=== PATIENT | male | born 1970 | race Caucasian/White ===

== ENCOUNTER 2022-06-02 20:57 | Emergency (ER) | payer SELFPAY ==
[~2022-06-02] VITALS: Ht 182.9 cm; Wt 99.1 kg
[2022-06-02 21:59] LABS: BASOPHILS % (AUTO) 0.8 % (0.0-2.0); EOSINOPHILS % (AUTO) 0.5 % (1.0-6.0); HEMATOCRIT 33.8 % (41-53); HEMOGLOBIN 10.9 g/dL (13.5-17.5); LYMPHOCYTES % (AUTO) 33.2 % (22.0-44.0); MEAN CORPUSCULAR HEMOGLOBIN 30.9 pg (26.0-34.0); MEAN CORPUSCULAR HGB CONC 32.4 G/dL (31.0-37.0); MEAN CORPUSCULAR VOLUME 96 fL (80-100); MONOCYTES # (AUTO) 1.1 K/uL (0.1-1.0); MONOCYTES % (AUTO) 12.1 % (2.0-9.0); NEUTROPHILS # (AUTO) 4.8 K/uL (1.8-7.7); NEUTROPHILS % (AUTO) 53.4 % (40.0-70.0); PLATELET COUNT (AUTO) 239 K/uL (150-450); RED BLOOD CELL COUNT(AUTO) 3.54 MIL/uL (4.50-5.90); RED CELL DISTRIBUTION WIDTH 17.2 % (11.5-14.5)
[2022-06-02] MEDS ORDERED: LOSA1TAB37 PO (22:13)
[2022-06-02] MEDS ORDERED: OXYC1TAB6 PO (22:13)
[2022-06-02] MEDS ORDERED: DILT-72 PO (22:13)
[2022-06-02] MEDS ORDERED: APIX5TAB PO (22:13)
[2022-06-02 22:15] LABS: ALANINE AMINOTRANSFERASE 49 U/L (12-78); ALBUMIN 2.8 g/dL (3.4-5.0); ALKALINE PHOSPHATASE 257 U/L (46-116); ANION GAP 13 mmol/L (8-16); ASPARTATE AMINOTRANSFERASE 59 U/L (15-37); BILIRUBIN,TOTAL 0.6 mg/dL (0.1-1.0); CALCIUM, TOTAL 8.9 mg/dL (8.8-10.5); CARBON DIOXIDE 23 mmol/L (22-29); CHLORIDE 107 mmol/L (98-107); GLOMERULAR FILTR. RATE CALC > 60 mL/min (>60); GLUCOSE,RANDOM 73 mg/dL (70-110); SODIUM SERUM 143 mmol/L (136-145); TOTAL PROTEIN, SERUM 6.9 g/dL (6.4-8.2); UREA NITROGEN, BLOOD 8 mg/dL (7-18)
[2022-06-02 22:21] LABS: AMPHET/METH SCREEN,URINE NEGATIVE (NEGATIVE); BARBITURATE SCREEN, URINE NEGATIVE (NEGATIVE); BENZODIAZEPINES SCREEN,URINE NEGATIVE (NEGATIVE); CANNABINOID SCREEN,URINE NEGATIVE (NEGATIVE); COCAINE SCREEN,URINE NEGATIVE (NEGATIVE); METHADONE SCREEN, URINE NEGATIVE (NEGATIVE); OPIATE SCREEN,URINE NEGATIVE (NEGATIVE); PHENCYCLIDINE SCREEN,URINE NEGATIVE (NEGATIVE)
[2022-06-02 22:28] LABS: B-TYPE NATRIURETIC PEPTIDE 862 pg/mL (0-100)
[2022-06-02 23:22] VITALS: BP 149/80
[2022-06-02] MEDS ORDERED: FUROSEMIDE 20 MG TABLET PO ONE (23:30)
[2022-06-02] MEDS ORDERED: DILTIAZEM HCL CD 240 MG ER CAPSULE PO ONE (23:30)
[2022-06-02] MEDS ORDERED: APIXABAN 5 MG TABLET PO ONE (23:30)
[2022-06-02] MEDS ORDERED: ACETAMINOPHEN 325 MG TABLET PO ONE (23:30)
[2022-06-02] MEDS ORDERED: KETOROLAC TROMETHAMINE 10 MG TABLET PO ONE (23:30)
[2022-06-02] MEDS ORDERED: POTASSIUM CHLORIDE 20 MEQ ER TABLET PO ONE (23:30)
== END 2022-06-03 00:05 | disposition home or self-care (01) ==
LOC: EMS 21:00
DX: I48.91 Unspecified atrial fibrillation (principal); M79.604 Pain in right leg; M79.605 Pain in left leg; F10.10 Alcohol abuse, uncomplicated; I50.9 Heart failure, unspecified; Y90.9 Presence of alcohol in blood, level not specified; Z88.0 Allergy status to penicillin; Z79.899 Other long term (current) drug therapy
CPT/HCPCS: 71045; 80053; 83880; 84484; 85025; 93005; 99285; 36415-L1; 36415-TC

== ENCOUNTER 2022-06-03 03:46 | Emergency (ER) | payer SELFPAY ==
[~2022-06-03] VITALS: Ht 177.8 cm; Wt 97.7 kg
[~2022-06-03 03:46] MED LIST: APIX5TAB PO; DILT-72 PO; LOSA1TAB37 PO; OXYC1TAB6 PO
[2022-06-03 05:45] VITALS: BP 132/78
== END 2022-06-03 07:11 | disposition left against medical advice (07) ==
LOC: EMS 03:52
DX: M79.604 Pain in right leg (principal); M79.605 Pain in left leg; Z53.21 Procedure and treatment not carried out due to patient leaving prior to being seen by health care provider

== ENCOUNTER 2022-07-28 22:00 | Emergency (ER) | payer MEDICAID ==
[~2022-07-28] VITALS: Ht 182.9 cm; Wt 97.7 kg
[2022-07-28 22:47] LABS: COVID AG,FIA SOURCE NASAL SWAB
[2022-07-28] MEDS: ASPIRIN 81 MG CHEWABLE TABLET PO ONE ×2 (22:50→23:06)
[2022-07-28] MEDS ORDERED: ONDANSETRON HCL 4 MG/2 ML VIAL IVP ONE (23:15)
[2022-07-28] MEDS ORDERED: MORPHINE SULFATE 4 MG/ML SYRINGE IVP ONE (23:15)
[2022-07-29] MEDS ORDERED: DILTIAZEM HCL 5 MG/ML 5 ML VIAL IVP ONE
[2022-07-29] MEDS ORDERED: LEVOFLOXACIN 750 MG/D5% WATER 150 ML IV ONE
[2022-07-29 00:08] LABS: BASOPHILS % (AUTO) 1.5 % (0.0-2.0); EOSINOPHILS % (AUTO) 1.3 % (1.0-6.0); HEMATOCRIT 33.9 % (41-53); HEMOGLOBIN 10.6 g/dL (13.5-17.5); LYMPHOCYTES % (AUTO) 31.3 % (22.0-44.0); MEAN CORPUSCULAR HGB CONC 31.3 G/dL (31.0-37.0); MEAN CORPUSCULAR VOLUME 93 fL (80-100); MONOCYTES # (AUTO) 0.7 K/uL (0.1-1.0); MONOCYTES % (AUTO) 7.1 % (2.0-9.0); NEUTROPHILS # (AUTO) 5.6 K/uL (1.8-7.7); NEUTROPHILS % (AUTO) 58.8 % (40.0-70.0); PLATELET COUNT (AUTO) 317 K/uL (150-450); RED BLOOD CELL COUNT(AUTO) 3.66 MIL/uL (4.50-5.90); RED CELL DISTRIBUTION WIDTH 18.6 % (11.5-14.5)
[2022-07-29 00:14] LABS: ANION GAP 10 mmol/L (8-16); CALCIUM, TOTAL 8.9 mg/dL (8.8-10.5); CARBON DIOXIDE 28 mmol/L (22-29); CHLORIDE 105 mmol/L (98-107); CREATININE 0.76 mg/dL (0.60-1.30); GLUCOSE,RANDOM 88 mg/dL (70-110); POTASSIUM 3.6 mmol/L (3.5-5.1); SODIUM SERUM 143 mmol/L (136-145); UREA NITROGEN, BLOOD 10 mg/dL (7-18)
[2022-07-29 00:17] LABS: GLOMERULAR FILTR. RATE CALC > 60 mL/min (>60)
[2022-07-29 00:23] LABS: INR 1.1 (0.9-1.1); PROTHROMBIN TIME 11.9 SEC (9.4-11.6)
[2022-07-29 00:27] LABS: ALANINE AMINOTRANSFERASE 24 U/L (12-78); ALBUMIN 3.5 g/dL (3.4-5.0); ALKALINE PHOSPHATASE 192 U/L (46-116); ASPARTATE AMINOTRANSFERASE 38 U/L (15-37); BILIRUBIN,TOTAL 0.6 mg/dL (0.1-1.0); CREATINE KINASE, TOTAL ONLY 113 U/L (39-308)
[2022-07-29] MEDS ORDERED: DILTIAZEM HCL 125 MG in DEXTROSE 5%-WATER 100 ML IV PRN (00:30)
[2022-07-29 00:31] LABS: B-TYPE NATRIURETIC PEPTIDE 364 pg/mL (0-100)
[2022-07-29] MEDS ORDERED: FUROSEMIDE 40 MG/4 ML VIAL IVP ONE (00:45)
[2022-07-29 01:05] LABS: APPEARANCE,URINE CLEAR (CLEAR); BILIRUBIN,URINE NEGATIVE (NEGATIVE); GLUCOSE, URINE (UA) NEGATIVE (NEGATIVE); KETONES,URINE NEGATIVE (NEGATIVE); LEUKOCYTE ESTERASE ,URINE NEGATIVE (NEGATIVE); NITRATE,URINE NEGATIVE (NEGATIVE); OCCULT BLOOD,URINE NEGATIVE (NEGATIVE); PH,URINE 5.5 (5.0-8.0); PROTEIN,URINE 100-200,SEE CONFIRM mg/dL (NEGATIVE); SPECIFIC GRAVITIY, URINE 1.027 (1.003-1.030)
[2022-07-29 01:18] LABS: SULFOSALICYLIC ACID,URINE 1+ (Negative)
[2022-07-29 01:19] LABS: BACTERIA,URINE None Seen /HPF (None Seen); RBC,URINE None Seen /HPF (0-2); WBC,URINE None Seen /HPF (0-5)
[2022-07-29 03:02] LABS: AMPHET/METH SCREEN,URINE POSITIVE (NEGATIVE); BARBITURATE SCREEN, URINE NEGATIVE (NEGATIVE); BENZODIAZEPINES SCREEN,URINE POSITIVE (NEGATIVE); CANNABINOID SCREEN,URINE NEGATIVE (NEGATIVE); COCAINE SCREEN,URINE NEGATIVE (NEGATIVE); METHADONE SCREEN, URINE NEGATIVE (NEGATIVE); OPIATE SCREEN,URINE POSITIVE (NEGATIVE)
[2022-07-29] MEDS ORDERED: ACETAMINOPHEN 325 MG TABLET PO PRN (03:15)
[2022-07-29] MEDS ORDERED: 0.9% SODIUM CHLORIDE 10 ML SYRINGE IVP PRN (03:15)
[2022-07-29] MEDS ORDERED: ONDANSETRON HCL 4 MG/2 ML VIAL IVP PRN (03:15)
[2022-07-29 03:45] LABS: PHENCYCLIDINE SCREEN,URINE NEGATIVE (NEGATIVE)
[2022-07-29 04:46] VITALS: BP 122/78
== END 2022-07-29 04:46 | disposition left against medical advice (07) ==
LOC: EMS 22:01
DX: R07.9 Chest pain, unspecified (principal); I48.20 Chronic atrial fibrillation, unspecified; I50.9 Heart failure, unspecified; N50.89 Other specified disorders of the male genital organs; F10.10 Alcohol abuse, uncomplicated; J18.9 Pneumonia, unspecified organism; Z20.822 Contact with and (suspected) exposure to COVID-19; Z87.39 Personal history of other diseases of the musculoskeletal system and connective tissue; Z88.0 Allergy status to penicillin
CPT/HCPCS: 99285; 71045; 96375 ×2; 87426; 80053; 82550; 83880; 84484; 85025; 85610; 85730; 87040; 76870; 93005; 80307; 81001; 96365; 96367; 36415; G0480; J3490 ×2; J2270; J2405; J1940; J1956; J7060; 81002

== ENCOUNTER 2022-07-29 09:31 | Emergency (ER) | payer MEDICAID ==
[~2022-07-29] VITALS: Ht 182.9 cm; Wt 113.6 kg
[2022-07-29 10:22] LABS: BASOPHILS % (AUTO) 1.9 % (0.0-2.0); EOSINOPHILS % (AUTO) 0.8 % (1.0-6.0); HEMATOCRIT 31.9 % (41-53); LYMPHOCYTES # (AUTO) 1.9 K/uL (1.0-4.8); MEAN CORPUSCULAR HEMOGLOBIN 29.1 pg (26.0-34.0); MEAN CORPUSCULAR HGB CONC 31.4 G/dL (31.0-37.0); MEAN CORPUSCULAR VOLUME 93 fL (80-100); MONOCYTES # (AUTO) 0.6 K/uL (0.1-1.0); MONOCYTES % (AUTO) 6.9 % (2.0-9.0); NEUTROPHILS # (AUTO) 5.7 K/uL (1.8-7.7); NEUTROPHILS % (AUTO) 67.4 % (40.0-70.0); PLATELET COUNT (AUTO) 274 K/uL (150-450); RED BLOOD CELL COUNT(AUTO) 3.44 MIL/uL (4.50-5.90); RED CELL DISTRIBUTION WIDTH 18.4 % (11.5-14.5)
[2022-07-29 10:32] LABS: ANION GAP 6 mmol/L (8-16); CALCIUM, TOTAL 8.5 mg/dL (8.8-10.5); CARBON DIOXIDE 28 mmol/L (22-29); CHLORIDE 105 mmol/L (98-107); CREATININE 0.77 mg/dL (0.60-1.30); GLUCOSE,RANDOM 95 mg/dL (70-110); POTASSIUM 3.3 mmol/L (3.5-5.1); SODIUM SERUM 139 mmol/L (136-145); UREA NITROGEN, BLOOD 9 mg/dL (7-18)
[2022-07-29 10:38] LABS: ALANINE AMINOTRANSFERASE 21 U/L (12-78); ALBUMIN 3.4 g/dL (3.4-5.0); ALKALINE PHOSPHATASE 180 U/L (46-116); ASPARTATE AMINOTRANSFERASE 32 U/L (15-37); BILIRUBIN,TOTAL 0.8 mg/dL (0.1-1.0); TOTAL PROTEIN, SERUM 7.6 g/dL (6.4-8.2)
[2022-07-29] MEDS ORDERED: HYDROmorphone 2 MG/ML VIAL IVP ONE (10:45)
[2022-07-29] MEDS ORDERED: FUROSEMIDE 40 MG/4 ML VIAL IVP ONE (10:45)
[2022-07-29] MEDS ORDERED: ONDANSETRON HCL 4 MG/2 ML VIAL IVP ONE (10:45)
[2022-07-29 10:49] LABS: GLOMERULAR FILTR. RATE CALC > 60 mL/min (>60)
[2022-07-29] MEDS ORDERED: 0.9% SODIUM CHLORIDE 10 ML SYRINGE IVP PRN (11:00)
[2022-07-29] MEDS ORDERED: POTASSIUM CHLORIDE 10% 40 MEQ/30 ML LIQUID UDCUP PO ONE (11:00)
[2022-07-29] MEDS ORDERED: DIGOXIN 250 MCG/ML 2 ML AMP IVP ONE (11:00)
[2022-07-29] MEDS ORDERED: METOPROLOL TARTRATE 25 MG TABLET PO ONE (11:00)
[2022-07-29] MEDS ORDERED: DILTIAZEM HCL 5 MG/ML 5 ML VIAL IVP ONE (11:00)
[2022-07-29] MEDS ORDERED: CLOBETASOL 0.05% 15 GM CREAM TP ONE (11:30)
[2022-07-29 11:31] LABS: B-TYPE NATRIURETIC PEPTIDE 191 pg/mL (0-100); LIPASE 518 U/L (73-393)
[2022-07-29] MEDS ORDERED: LORazepam 2 MG/ML VIAL IVP ONE (13:15)
[2022-07-29] MEDS ORDERED: HALOPERIDOL LACTATE 5 MG/ML VIAL IVP ONE (15:00)
[2022-07-29] MEDS ORDERED: ONDANSETRON HCL 4 MG/2 ML VIAL IVP PRN (15:00)
[2022-07-29] MEDS ORDERED: BUMETANIDE 0.25 MG/ML 4 ML VIAL IVP ONE (15:00)
[2022-07-29 15:02] LABS: AMPHET/METH SCREEN,URINE NEGATIVE (NEGATIVE); BARBITURATE SCREEN, URINE NEGATIVE (NEGATIVE); BENZODIAZEPINES SCREEN,URINE POSITIVE (NEGATIVE); CANNABINOID SCREEN,URINE NEGATIVE (NEGATIVE); COCAINE SCREEN,URINE NEGATIVE (NEGATIVE); METHADONE SCREEN, URINE NEGATIVE (NEGATIVE); OPIATE SCREEN,URINE POSITIVE (NEGATIVE)
[2022-07-29 15:03] LABS: PHENCYCLIDINE SCREEN,URINE NEGATIVE (NEGATIVE)
[2022-07-29] MEDS: KETOROLAC TROMETHAMINE 30 MG/ML VIAL IVP ONE ×2 (15:04→15:15)
[2022-07-29] MEDS ORDERED: LORazepam 2 MG/ML VIAL IVP PRN (15:15)
[2022-07-29] MEDS ORDERED: POTASSIUM CHL 10 MEQ/WATER 50 ML IV PRN (15:30)
[2022-07-29] MEDS ORDERED: MAGNESIUM SULFATE 2 GM/WATER 50 ML IV PRN (15:30)
[2022-07-29] MEDS ORDERED: MAGNESIUM OXIDE 400 MG TABLET PO PRN (15:30)
[2022-07-29] MEDS ORDERED: MAGNESIUM SULFATE 4 GM/WATER 100 ML IV PRN (15:30)
[2022-07-29] MEDS ORDERED: POTASSIUM CHLORIDE 20 MEQ ER TABLET PO PRN (15:30)
[2022-07-29] MEDS ORDERED: ASPIRIN 81 MG DR TABLET PO SCH (15:30)
[2022-07-29] MEDS ORDERED: METOPROLOL SUCCINATE 25 MG ER TABLET PO SCH (15:30)
[2022-07-29] MEDS: MORPHINE SULFATE 4 MG/ML SYRINGE IVP PRN ×2 (15:36→19:36)
[2022-07-29 19:19] VITALS: BP 135/78
[2022-07-29] MEDS ORDERED: FUROSEMIDE 40 MG/4 ML VIAL IVP SCH (21:00)
[2022-07-30] MEDS ORDERED: ATORVASTATIN CALCIUM 40 MG TABLET PO SCH (09:00)
== END 2022-07-29 20:42 | disposition left against medical advice (07) ==
LOC: EMS 09:32
DX: I48.20 Chronic atrial fibrillation, unspecified (principal); I50.9 Heart failure, unspecified; L30.9 Dermatitis, unspecified; F10.10 Alcohol abuse, uncomplicated; R55 Syncope and collapse; F10.129 Alcohol abuse with intoxication, unspecified; E87.6 Hypokalemia; S02.2XXA Fracture of nasal bones, initial encounter for closed fracture; J90 Pleural effusion, not elsewhere classified; Z87.39 Personal history of other diseases of the musculoskeletal system and connective tissue; Z88.0 Allergy status to penicillin; X58.XXXA Exposure to other specified factors, initial encounter; Y93.89 Activity, other specified; Y92.89 Other specified places as the place of occurrence of the external cause; Y99.8 Other external cause status
CPT/HCPCS: 99291; 93306; 96374; 70450; 71045; 80053; 83690; 83735; 83880; 84484; 85025; 70160; 93005; 80307; 36415; 96375; G0480; J3490 ×2; J1160; J1940; J1630; J1170; J1885; J2060; J2270; J2405

== ENCOUNTER 2022-07-30 23:41 | Emergency (ER) | payer MEDICAID ==
[~2022-07-30] VITALS: Ht 182.9 cm; Wt 104.0 kg
[2022-07-31 00:52] LABS: BASOPHILS % (AUTO) 1.3 % (0.0-2.0); EOSINOPHILS % (AUTO) 0.8 % (1.0-6.0); HEMOGLOBIN 9.9 g/dL (13.5-17.5); LYMPHOCYTES # (AUTO) 2.2 K/uL (1.0-4.8); MEAN CORPUSCULAR HEMOGLOBIN 29.3 pg (26.0-34.0); MEAN CORPUSCULAR VOLUME 91 fL (80-100); MONOCYTES # (AUTO) 0.5 K/uL (0.1-1.0); MONOCYTES % (AUTO) 5.5 % (2.0-9.0); NEUTROPHILS # (AUTO) 6.7 K/uL (1.8-7.7); NEUTROPHILS % (AUTO) 69.4 % (40.0-70.0); PLATELET COUNT (AUTO) 214 K/uL (150-450); RED BLOOD CELL COUNT(AUTO) 3.39 MIL/uL (4.50-5.90); RED CELL DISTRIBUTION WIDTH 18.7 % (11.5-14.5)
[2022-07-31 01:02] LABS: ANION GAP 11 mmol/L (8-16); CALCIUM, TOTAL 8.1 mg/dL (8.8-10.5); CARBON DIOXIDE 26 mmol/L (22-29); CHLORIDE 102 mmol/L (98-107); GLUCOSE,RANDOM 73 mg/dL (70-110); POTASSIUM 3.4 mmol/L (3.5-5.1); SODIUM SERUM 139 mmol/L (136-145); UREA NITROGEN, BLOOD 13 mg/dL (7-18)
[2022-07-31 01:07] LABS: GLOMERULAR FILTR. RATE CALC > 60 mL/min (>60)
[2022-07-31 01:08] LABS: INR 1.2 (0.9-1.1); PROTHROMBIN TIME 12.3 SEC (9.4-11.6)
[2022-07-31 01:12] LABS: ALANINE AMINOTRANSFERASE 21 U/L (12-78); ALKALINE PHOSPHATASE 234 U/L (46-116); ASPARTATE AMINOTRANSFERASE 41 U/L (15-37); BILIRUBIN,TOTAL 0.7 mg/dL (0.1-1.0); CREATINE KINASE, TOTAL ONLY 84 U/L (39-308); TOTAL PROTEIN, SERUM 6.9 g/dL (6.4-8.2)
[2022-07-31 01:14] LABS: B-TYPE NATRIURETIC PEPTIDE 374 pg/mL (0-100)
[2022-07-31 04:03] VITALS: BP 127/72
== END 2022-07-31 04:30 | disposition left against medical advice (07) ==
LOC: EMS 23:42
DX: I48.91 Unspecified atrial fibrillation (principal); I50.9 Heart failure, unspecified; Z88.0 Allergy status to penicillin
CPT/HCPCS: 71045; 80053; 82550; 83880; 84484; 85025; 85610; 85730; 93005; 99285

== ENCOUNTER 2022-08-06 21:20 | Inpatient (IN) | payer MEDICAID ==
[~2022-08-06] VITALS: Ht 182.9 cm; Wt 108.0 kg
[2022-08-06 21:58] LABS: EOSINOPHILS % (AUTO) 0 % (1.0-6.0); HEMATOCRIT 27.5 % (41-53); HEMOGLOBIN 8.8 g/dL (13.5-17.5); LYMPHOCYTES # (AUTO) 1.5 K/uL (1.0-4.8); LYMPHOCYTES % (AUTO) 18.3 % (22.0-44.0); MEAN CORPUSCULAR HEMOGLOBIN 29.4 pg (26.0-34.0); MEAN CORPUSCULAR HGB CONC 31.9 G/dL (31.0-37.0); MEAN CORPUSCULAR VOLUME 92 fL (80-100); MONOCYTES # (AUTO) 1.1 K/uL (0.1-1.0); MONOCYTES % (AUTO) 14.2 % (2.0-9.0); NEUTROPHILS # (AUTO) 5.3 K/uL (1.8-7.7); NEUTROPHILS % (AUTO) 66.5 % (40.0-70.0); PLATELET COUNT (AUTO) 131 K/uL (150-450); RED BLOOD CELL COUNT(AUTO) 2.99 MIL/uL (4.50-5.90); RED CELL DISTRIBUTION WIDTH 21.7 % (11.5-14.5)
[2022-08-06] MEDS ORDERED: ASPIRIN 325 MG TABLET PO ONE (22:00)
[2022-08-06] MEDS ORDERED: DILTIAZEM HCL 5 MG/ML 5 ML VIAL IVP ONE ×2 (22:00→23:00)
[2022-08-06] MEDS ORDERED: DIGOXIN 250 MCG/ML 2 ML AMP IVP ONE (22:00)
[2022-08-06 22:08] LABS: ANION GAP 12 mmol/L (8-16); CALCIUM, TOTAL 8.4 mg/dL (8.8-10.5); CARBON DIOXIDE 21 mmol/L (22-29); CHLORIDE 99 mmol/L (98-107); CREATININE 0.82 mg/dL (0.60-1.30); GLUCOSE,RANDOM 132 mg/dL (70-110); POTASSIUM 3.2 mmol/L (3.5-5.1); SODIUM SERUM 132 mmol/L (136-145); UREA NITROGEN, BLOOD 5 mg/dL (7-18)
[2022-08-06 22:09] LABS: GLOMERULAR FILTR. RATE CALC > 60 mL/min (>60)
[2022-08-06 22:14] LABS: ALANINE AMINOTRANSFERASE 15 U/L (12-78); ALBUMIN 3.1 g/dL (3.4-5.0); ALKALINE PHOSPHATASE 191 U/L (46-116); ASPARTATE AMINOTRANSFERASE 31 U/L (15-37); BILIRUBIN,TOTAL 0.9 mg/dL (0.1-1.0)
[2022-08-06 22:24] LABS: OCCULT BLOOD,GASTRIC FLUID NEGATIVE (NEGATIVE)
[2022-08-06] MEDS ORDERED: MAGNESIUM SULFATE 2 GM/WATER 50 ML IV PRN (23:00)
[2022-08-06] MEDS ORDERED: ONDANSETRON HCL 4 MG/2 ML VIAL IVP PRN (23:00)
[2022-08-06] MEDS ORDERED: POTASSIUM CHL 10 MEQ/WATER 50 ML IV PRN (23:00)
[2022-08-06] MEDS ORDERED: POTASSIUM CHLORIDE 20 MEQ ER TABLET PO PRN (23:00)
[2022-08-06] MEDS ORDERED: MAGNESIUM OXIDE 400 MG TABLET PO PRN (23:00)
[2022-08-06] MEDS ORDERED: MAGNESIUM SULFATE 4 GM/WATER 100 ML IV PRN (23:00)
[2022-08-06] MEDS ORDERED: ACETAMINOPHEN 325 MG TABLET PO PRN (23:00)
[2022-08-06] MEDS ORDERED: MORPHINE SULFATE 2 MG/ML SYRINGE IVP ONE (23:15)
[2022-08-06] MEDS: HEPARIN SODIUM,PORCINE 5,000 UNITS/ML VIAL SQ SCH (23:16)
[2022-08-06 23:29] LABS: THYROID STIMULATING HORMONE 9.06 uIU/mL (0.36-3.74)
[2022-08-06] MEDS ORDERED: NALOXONE HCL 1 MG/ML 2 ML SYRINGE IVP PRN (23:30)
[2022-08-07] VITALS (7 sets, daily range): BP systolic 47–159; BP diastolic 88–116
[2022-08-07] MEDS ORDERED: IOHEXOL 350 MG/ML 100 ML VIAL ONE (00:01)
[2022-08-07] MEDS ORDERED: SODIUM CHLORIDE 0.9% 0 ML ONE (00:01)
[2022-08-07 00:31] LABS: FREE T4 (FREE THYROXINE) 0.85 ng/dL (0.76-1.46)
[2022-08-07] MEDS: LORazepam 2 MG TABLET PO PRN ×2 (00:34→05:32)
[2022-08-07] MEDS: MORPHINE SULFATE 2 MG/ML SYRINGE IVP PRN ×3 (04:07→12:35)
[2022-08-07] MEDS ORDERED: DILTIAZEM HCL 5 MG/ML 5 ML VIAL IVP ONE ×2 (05:15→20:15)
[2022-08-07] MEDS ORDERED: METOPROLOL TARTRATE 5 MG/5 ML VIAL IVP ONE ×2 (06:00→19:00)
[2022-08-07] MEDS ORDERED: LORazepam 2 MG TABLET PO PRN (07:00)
[2022-08-07] MEDS: HEPARIN SODIUM,PORCINE 5,000 UNITS/ML VIAL SQ SCH ×2 (08:26→16:59)
[2022-08-07] MEDS: LORazepam 2 MG TABLET PO SCH ×4 (08:26→20:50)
[2022-08-07] MEDS: METOPROLOL TARTRATE 25 MG TABLET PO SCH ×2 (08:26→20:50)
[2022-08-07] MEDS ORDERED: MULTIVITAMINS WITH MINERALS, THERAPEUTIC TABLET PO SCH (09:00)
[2022-08-07 09:53] LABS: BASOPHILS % (AUTO) 0.6 % (0.0-2.0); EOSINOPHILS % (AUTO) 0 % (1.0-6.0); HEMATOCRIT 33.5 % (41-53); HEMOGLOBIN 10.5 g/dL (13.5-17.5); LYMPHOCYTES # (AUTO) 0.8 K/uL (1.0-4.8); LYMPHOCYTES % (AUTO) 8.3 % (22.0-44.0); MEAN CORPUSCULAR HEMOGLOBIN 29.2 pg (26.0-34.0); MEAN CORPUSCULAR HGB CONC 31.3 G/dL (31.0-37.0); MEAN CORPUSCULAR VOLUME 93 fL (80-100); MONOCYTES # (AUTO) 1.1 K/uL (0.1-1.0); MONOCYTES % (AUTO) 11.2 % (2.0-9.0); NEUTROPHILS # (AUTO) 7.9 K/uL (1.8-7.7); NEUTROPHILS % (AUTO) 79.9 % (40.0-70.0); PLATELET COUNT (AUTO) 157 K/uL (150-450); RED CELL DISTRIBUTION WIDTH 21.6 % (11.5-14.5)
[2022-08-07 10:11] LABS: ANION GAP 13 mmol/L (8-16); CALCIUM, TOTAL 8.6 mg/dL (8.8-10.5); CARBON DIOXIDE 21 mmol/L (22-29); CHLORIDE 97 mmol/L (98-107); CREATININE 0.93 mg/dL (0.60-1.30); GLUCOSE,RANDOM 113 mg/dL (70-110); SODIUM SERUM 131 mmol/L (136-145); UREA NITROGEN, BLOOD 6 mg/dL (7-18)
[2022-08-07 10:15] LABS: GLOMERULAR FILTR. RATE CALC > 60 mL/min (>60)
[2022-08-07] MEDS ORDERED: AMIODARONE HCL 150 MG in DEXTROSE 5%-WATER 97 ML IV ONE (11:15)
[2022-08-07] MEDS ORDERED: AMIODARONE HCL 360 MG in DEXTROSE 5%-WATER 242.8 ML IV ONE (11:30)
[2022-08-07] MEDS: LORazepam 2 MG/ML VIAL IVP PRN ×2 (16:59→20:48)
[2022-08-07] MEDS ORDERED: AMIODARONE HCL 540 MG in DEXTROSE 5%-WATER 239.2 ML IV ONE (17:30)
[2022-08-07] MEDS ORDERED: FUROSEMIDE 20 MG/2 ML VIAL IVP ONE (20:00)
[2022-08-07] MEDS ORDERED: *CLINICAL-CEFEPIME DOSING CLINICAL ONE (20:15)
[2022-08-07 20:16] LABS: ABG CARBOXYHEMOGLOBIN 0.9 % (0.0-1.5); ABG HCO3 10.9 mmol/L (22.0-26.0); ABG METHEMOGLOBIN 0.3 % (0.0-1.5); ABG OXYGEN SATURATION 94.3 % (95.0-98.0); ABG OXYHEMOGLOBIN 93.2 % (94.0-100.0); ABG PCO2 23 mmHg (35-45); ABG TOTAL HEMOGLOBIN 12.1 G/dL (12.0-18.0); SOURCE, BLOOD GAS ARTERIAL; TEMPERATURE, FAHRENHEIT, BG 98.6 FAHREN (96.0-98.6)
[2022-08-07] MEDS ORDERED: NALOXONE HCL 0.4 MG/ML VIAL ONE (20:16)
[2022-08-07 20:17] LABS: ABG PH 7.183 (7.35-7.450); O2 DEVICE,BLOOD GAS CANNULA (ROOM AIR); SITE, BLOOD GAS RT RADIAL
[2022-08-07] MEDS ORDERED: NALOXONE HCL 0.4 MG/ML VIAL IVP ONE (20:30)
[2022-08-07] MEDS ORDERED: DEXMEDETOMIDINE HCL 400 MCG in SODIUM CHLORIDE 0.9% 96 ML IV PRN (20:30)
[2022-08-07] MEDS ORDERED: SODIUM CHLORIDE 0.9% 500 ML IV ONE (20:45)
[2022-08-07 21:07] LABS: ALANINE AMINOTRANSFERASE 154 U/L (12-78); ALBUMIN 3.4 g/dL (3.4-5.0); ALKALINE PHOSPHATASE 208 U/L (46-116); ANION GAP 22 mmol/L (8-16); ASPARTATE AMINOTRANSFERASE 526 U/L (15-37); BILIRUBIN,TOTAL 3.5 mg/dL (0.1-1.0); CALCIUM, TOTAL 8.6 mg/dL (8.8-10.5); CARBON DIOXIDE 13 mmol/L (22-29); CHLORIDE 96 mmol/L (98-107); CREATININE 1.97 mg/dL (0.60-1.30); POTASSIUM 5.8 mmol/L (3.5-5.1); SODIUM SERUM 131 mmol/L (136-145); TOTAL PROTEIN, SERUM 7.8 g/dL (6.4-8.2); UREA NITROGEN, BLOOD 12 mg/dL (7-18)
[2022-08-07] MEDS ORDERED: DEXTROSE 50%-WATER 25 GM/50 ML SYRINGE IVP ONE ×3 (21:20→21:30)
[2022-08-07 21:31] LABS: GLOMERULAR FILTR. RATE CALC 36 mL/min (>60); GLUCOSE,RANDOM 18 mg/dL (70-110); LACTIC ACID 11.2 mmol/L (0.4-2.0)
[2022-08-07] MEDS ORDERED: SODIUM CHLORIDE 0.9% 1,000 ML ONE (21:38)
[2022-08-07] MEDS ORDERED: VANCOMYCIN HCL 1.25 GM in DEXTROSE 5%-WATER 250 ML IV ONE (21:45)
[2022-08-07] MEDS ORDERED: SODIUM CHLORIDE 0.9% 1,500 ML IV ONE (21:45)
[2022-08-07] MEDS ORDERED: CALCIUM GLUCONATE 100 MG/ML 10 ML IVP ONE (21:45)
[2022-08-07] MEDS ORDERED: SODIUM BICARBONATE [ADULT] 8.4% 50 MEQ/50 ML SYRINGE IVP ONE (21:45)
[2022-08-07] MEDS ORDERED: CEFEPIME HCL 1 GM in DEXTROSE 5%-WATER 50 ML IV SCH (22:00)
[2022-08-07] MEDS ORDERED: SODIUM CHLORIDE 0.9% 250 ML IV ONE (22:28)
[2022-08-07 22:43] LABS: ACETAMINOPHEN < 2 mcg/mL (10-30)
[2022-08-07 23:12] LABS: INR 1.9 (0.9-1.1); PROTHROMBIN TIME 19.2 SEC (9.4-11.6)
[2022-08-07 23:27] LABS: HEMATOCRIT 36.1 % (41-53); HEMOGLOBIN 10.2 g/dL (13.5-17.5); MEAN CORPUSCULAR HEMOGLOBIN 28.6 pg (26.0-34.0); MEAN CORPUSCULAR HGB CONC 28.1 G/dL (31.0-37.0); MEAN CORPUSCULAR VOLUME 102 fL (80-100); PLATELET COUNT (AUTO) 156 K/uL (150-450); RED BLOOD CELL COUNT(AUTO) 3.56 MIL/uL (4.50-5.90); RED CELL DISTRIBUTION WIDTH 22.3 % (11.5-14.5)
[2022-08-07] MEDS ORDERED: GLUCAGON,HUMAN RECOMBINANT 1 MG VIAL SQ ONE (23:30)
[2022-08-07] MEDS ORDERED: LACTULOSE 200 GM/300 ML RECTAL SOLUTION PR ONE (23:30)
[2022-08-07] MEDS ORDERED: ROCURONIUM BROMIDE 10 MG/ML 5 ML VIAL IVP ONE (23:45)
[2022-08-07 23:51] LABS: BAND NEUTROPHILS % (MANUAL) 16 % (0-5); LYMPHOCYTES % (MANUAL) 4 % (22-44); MONOCYTES % (MANUAL) 15 % (2-9); SEGMENTED NEUTROPHILS % 65 % (40-70)
[2022-08-08] MEDS ORDERED: NOREPINEPHRINE 8 MG/D5%-WATER 250 ML IV PRN
[2022-08-08] MEDS: VASOPRESSIN 40 UNITS in DEXTROSE 5%-WATER 98 ML IV PRN ×2 (00:10→00:20)
[2022-08-08 00:20] VITALS: BP 104/79
[2022-08-08] MEDS ORDERED: PANTOPRAZOLE SODIUM 80 MG in SODIUM CHLORIDE 0.9% 100 ML IV SCH (00:45)
[2022-08-08] MEDS ORDERED: OCTREOTIDE ACETATE 500 MCG in SODIUM CHLORIDE 0.9% 97.5 ML IV SCH (00:45)
[2022-08-08] MEDS ORDERED: PANTOPRAZOLE SODIUM 40 MG/VIAL IVP ONE (00:45)
[2022-08-08 00:58] LABS: CALCIUM, TOTAL 8.4 mg/dL (8.8-10.5); CREATININE 2.25 mg/dL (0.60-1.30); POTASSIUM 5.4 mmol/L (3.5-5.1)
[2022-08-08 01:10] LABS: ALBUMIN 2.8 g/dL (3.4-5.0); BILIRUBIN,DIRECT 2.6 mg/dL (0.00-0.20); BILIRUBIN,TOTAL 3.6 mg/dL (0.1-1.0); TOTAL PROTEIN, SERUM 6.7 g/dL (6.4-8.2)
[2022-08-08 01:50] LABS: ABG CARBOXYHEMOGLOBIN 0.6 % (0.0-1.5); ABG METHEMOGLOBIN 0.3 % (0.0-1.5); ABG OXYHEMOGLOBIN 78.1 % (94.0-100.0); ABG PCO2 44 mmHg (35-45); ABG TOTAL HEMOGLOBIN 10.9 G/dL (12.0-18.0); PO2, ARTERIAL BG 65.5 mmHg (84.0-92.0); SOURCE, BLOOD GAS ARTERIAL; TEMPERATURE, FAHRENHEIT, BG 97.8 FAHREN (96.0-98.6)
[2022-08-08] MEDS ORDERED: SODIUM BICARBONATE 150 MEQ in SODIUM CHLORIDE 0.45% 1,000 ML IV SCH (02:00)
[2022-08-08] MEDS ORDERED: SODIUM BICARBONATE 50 MEQ/50 ML VIAL IVP ONE (02:00)
[2022-08-08] MEDS ORDERED: PHENYLEPHRINE 200 MG/D5%-WATER 250 ML IV PRN (03:15)
[2022-08-08 03:47] LABS: CALCIUM, TOTAL 8.1 mg/dL (8.8-10.5); CREATININE 2.36 mg/dL (0.60-1.30)
[2022-08-08 03:50] LABS: POTASSIUM 6.6 mmol/L (3.5-5.1)
[2022-08-08 04:12] LABS: ABG BASE EXCESS -29.6 mmol/L (-2.0-3.0); ABG CARBOXYHEMOGLOBIN 0.6 % (0.0-1.5); ABG METHEMOGLOBIN 0.1 % (0.0-1.5); ABG OXYHEMOGLOBIN 66.3 % (94.0-100.0); ABG PCO2 54 mmHg (35-45); ABG TOTAL HEMOGLOBIN 10.6 G/dL (12.0-18.0); PO2, ARTERIAL BG 57.9 mmHg (84.0-92.0); SOURCE, BLOOD GAS ARTERIAL; TEMPERATURE, FAHRENHEIT, BG 98.3 FAHREN (96.0-98.6)
[2022-08-08] MEDS ORDERED: DEXTROSE 50%-WATER 25 GM/50 ML SYRINGE IVP ONE ×2 (04:15→09:39)
[2022-08-08] MEDS ORDERED: SODIUM BICARBONATE [ADULT] 8.4% 50 MEQ/50 ML SYRINGE IVP ONE ×3 (04:15→09:39)
[2022-08-08] MEDS ORDERED: INSULIN REGULAR, HUMAN 100 UNITS/ML SQ ONE (04:15)
[2022-08-08 04:41] LABS: ABG OXYGEN SATURATION 66.8 % (95.0-98.0); O2 DEVICE,BLOOD GAS VENT (ROOM AIR); SITE, BLOOD GAS ALINE
[2022-08-08 04:54] LABS: PEEP,BG 5 cm H2O; VT, ABG 450 ml
[2022-08-08 04:56] LABS: ABG PH 6.889 (7.35-7.450)
[2022-08-08 04:57] LABS: ABG HCO3 6.9 mmol/L (22.0-26.0); ABG OXYGEN SATURATION 78.8 % (95.0-98.0); SITE, BLOOD GAS A LINE
[2022-08-08 04:58] LABS: ABG A-A DIFF O2 604.9 mmHg (10-20.0); O2 DEVICE,BLOOD GAS VENT (ROOM AIR); PEEP,BG 5 cm H2O; VT, ABG 450 ml
[2022-08-08 07:26] LABS: GLUCOSE,POINT OF CARE 36 MG/DL (70-110)
[2022-08-08] MEDS ORDERED: VANCOMYCIN HCL 750 MG in DEXTROSE 5%-WATER 250 ML IV SCH (08:00)
[2022-08-08] MEDS ORDERED: EPINEPHrine 1:10,000 [1 MG/10 ML] SYRINGE IVP ONE ×2 (09:39)
[2022-08-08] MEDS ORDERED: ATROPINE SULFATE 0.1 MG/ML 10 ML SYRINGE IVP ONE (09:39)
[2022-08-08] MEDS ORDERED: 0.9% SODIUM CHLORIDE 1,000 ML BAG IV ONE (09:39)
[2022-08-08] MEDS ORDERED: CALCIUM CHLORIDE 100 MG/ML 10 ML SYRINGE IVP ONE ×3 (09:39)
[2022-08-08 10:41] LABS: GLUCOMETER DEV NAME(LOC) 5S.2B; GLUCOSE,POINT OF CARE 92 MG/DL (70-110)
[2022-08-08 10:41] LABS: GLUCOMETER DEV NAME(LOC) 5S.2B; GLUCOSE,POINT OF CARE < 10 MG/DL (70-110)
[2022-08-08 13:21] LABS: GLUCOSE,POINT OF CARE 101 MG/DL (70-110)
[2022-08-08] MEDS ORDERED: CEFEPIME HCL 2 GM in DEXTROSE 5%-WATER 50 ML IV SCH (14:00)
[2022-08-08] MEDS ORDERED: AMIODARONE HCL 750 MG in DEXTROSE 5%-WATER 485 ML IV SCH (15:00)
[2022-08-09] MEDS ORDERED: LORazepam 1 MG TABLET PO PRN (07:00)
[2022-08-09] MEDS ORDERED: LORazepam 1 MG TABLET PO SCH (09:00)
[2022-08-10] MEDS ORDERED: LORazepam 1 MG TABLET PO PRN (07:00)
== END 2022-08-08 09:40 | DRG 280 ==
LOC: EMS 21:21 → 5S 08-07 00:32 → ICU 08-07 21:55
PROVIDERS: ADMIT Internal Medicine; ATTEND Internal Medicine
PROC: 04HY32Z Insertion of Monitoring Device into Lower Artery, Percutaneous Approach (ICD-10-PCS; principal; 2022-08-08)
PROC: 4A133B1 Monitoring of Arterial Pressure, Peripheral, Percutaneous Approach (ICD-10-PCS; 2022-08-08)
PROC: 4A133J1 Monitoring of Arterial Pulse, Peripheral, Percutaneous Approach (ICD-10-PCS; 2022-08-08)
DX: K70.40 Alcoholic hepatic failure without coma (principal); K70.30 Alcoholic cirrhosis of liver without ascites; J96.91 Respiratory failure, unspecified with hypoxia; R57.0 Cardiogenic shock; K76.7 Hepatorenal syndrome; I50.23 Acute on chronic systolic (congestive) heart failure; I95.9 Hypotension, unspecified; D61.818 Other pancytopenia; E87.2 Acidosis; I48.19 Other persistent atrial fibrillation; I46.9 Cardiac arrest, cause unspecified; N17.9 Acute kidney failure, unspecified; E87.1 Hypo-osmolality and hyponatremia; E03.9 Hypothyroidism, unspecified; E16.2 Hypoglycemia, unspecified; F10.229 Alcohol dependence with intoxication, unspecified; E87.6 Hypokalemia; E87.5 Hyperkalemia; I34.0 Nonrheumatic mitral (valve) insufficiency; I42.9 Cardiomyopathy, unspecified; K29.20 Alcoholic gastritis without bleeding; J91.8 Pleural effusion in other conditions classified elsewhere; N50.89 Other specified disorders of the male genital organs; Z53.29 Procedure and treatment not carried out because of patient's decision for other reasons; Z20.822 Contact with and (suspected) exposure to COVID-19; Z87.891 Personal history of nicotine dependence; Z91.19 Patient's noncompliance with other medical treatment and regimen; Z79.899 Other long term (current) drug therapy; Z88.0 Allergy status to penicillin
CPT/HCPCS: 36600; 71045; 80048; 80053; 80076; 82040; 82140; 82271; 82805; 82962; 83605; 83615; 83735; 84439; 84443; 84484; 85007; 85025; 85027; 85610; 85730; 86850; 86900; 86901; 87040; 87081; 92950; 93005; 94002; 99291; C9113; G0378; G0480; G0481; J0171; J0282; J0461; J0692; J1160; J1610; J1644; J1815; J2060; J2270; J2310; J2354; J2405; J3370; J3490; J7030; J7040; J7050; J7060; Q9967; 36415-L1; 36415-TC